=== PATIENT | male | born 1960 ===

== ENCOUNTER 2016-11-17 00:58 | Emergency (ER) | payer OTHER ==
[2016-11-17 00:59] VITALS: BMI 26.6
[2016-11-17 01:14] VITALS: BP 131/89; PULSE 86; TEMP 98
[2016-11-17] MEDS ORDERED: Albuterol-Ipratrop 3 mg / 0.5 (3 ml) UD INH STA (01:18)
[2016-11-17] MEDS ORDERED: Albuterol-Ipratrop 3 mg / 0.5 (3 ml) UD ONE (01:22)
--- NOTE | 2016-11-17 02:01 | ED PDOC ---
HPI: SOB/CHF/COPD Time Seen by Provider: 11/17/16 01:12 Chief Complaint (Nursing): Shortness Of Breath Chief Complaint (Provider): Shortness of Breath History Per: Patient History/Exam Limitations: no limitations Onset/Duration Of Symptoms: Days (2 days) Severity: Mild Associated Symptoms: denies: Fever, Chills, Chest Pain, Dizziness Additional Complaint(s): 56 y/o male patient presenting to the ED with a cough that has been going on for 2 days. Pt is a current smoker and says the cough has been occurring for two days. Pt denies any chest pain , shortness of breath, fever, chills, no phlegm or diarrhea. Past Medical History Reviewed: Historical Data, Nursing Documentation, Vital Signs Vital Signs: Last Vital Signs Temp 98.0 F 11/17/16 01:11 Pulse 86 11/17/16 01:11 Resp 18 11/17/16 02:11 BP 131/89 11/17/16 01:11 Pulse Ox 97 11/17/16 02:11 - Medical History PMH: Denies: Pneumonia - Surgical History Surgical History: Appendectomy, Hernia Repair - Family History Family History: States: Unknown Family Hx - Social History Current smoker - smoking cessation education provided: Yes - Home Medications Home Medications: Ambulatory Orders Medication Instructions Recorded Albuterol 0.083% [Albuterol 0.083% 2.5 mg IH Q4 PRN #20 neb 04/23/16 Inhal Shayy (2.5 mg/3 ml) UD] Albuterol HFA [Ventolin HFA 90 1 - 2 puff IH Q4 PRN #1 inhaler 04/23/16 mcg/actuation (8 g)] Azithromycin [Zithromax] 250 mg PO DAILY #6 tab 04/23/16 Prednisone 50 mg PO DAILY #4 tab 04/23/16 Benzonatate [Tessalon Perle] 100 mg PO TID #20 capsule 11/17/16 predniSONE [predniSONE Tab] 40 mg PO DAILY #9 tab 11/17/16 - Allergies Allergies/Adverse Reactions: Allergies Allergy/AdvReac Type Severity Reaction Status Date / Time No Known Allergies Allergy Verified 04/23/16 09:09 Review of Systems ROS Statement: Except As Marked, All Systems Reviewed And Found Negative Constitutional: Negative for: Fever, Chills Cardiovascular: Negative for: Chest Pain Respiratory: Positive for: Cough, Shortness of Breath. Negative for: Sputum Gastrointestinal: Negative for: Nausea, Vomiting, Abdominal Pain Neurological: Negative for: Dizziness Physical Exam - Reviewed Nursing Documentation Reviewed: Yes Vital Signs Reviewed: Yes - Physical Exam Appears: Positive for: Non-toxic, No Acute Distress Head Exam: Positive for: ATRAUMATIC, NORMAL INSPECTION, NORMOCEPHALIC Skin: Positive for: Normal Color, Warm Eye Exam: Positive for: Normal appearance, EOMI, PERRL ENT: Positive for: Normal ENT Inspection Neck: Positive for: Normal, Painless ROM, Supple Cardiovascular/Chest: Positive for: Regular Rate, Rhythm. Negative for: Murmur Respiratory: Positive for: Normal Breath Sounds. Negative for: Wheezing Extremity: Positive for: Normal ROM Neurologic/Psych: Positive for: Alert, Oriented. Negative for: Motor/Sensory Deficits - ECG O2 Sat by Pulse Oximetry: 96 (RA) Pulse Ox Interpretation: Normal Medical Decision Making Medical Decision Making: Time: 0115 Initial impression: VIRAL ILLNESS/COUGH Initial plan: --CHEST TWO VIEWS X-RAY --ALBUTEROL/IPRATROPIUM 3ML --IBUPROFEN 600MG --PREDNISONE 40MG 0228: PT feeling better after administering of Prednisone, Alubuterol. Provided with smoking cessation counseling and ordered to follow up with PCP. Scribe Attestation: Documented by Jeny Song, acting as a scribe for Balwinder Mejía M.D. MD Scribe Attestation: All medical record entries made by the Scribe were at my direction and personally dictated by me. I have reviewed the chart and agree that the record accurately reflects my personal performance of the history, physical exam, medical decision making, and the department course for this patient. I have also personally directed, reviewed, and agree with the discharge instructions and disposition. Disposition - Clinical Impression Clinical Impression: Bronchospasm - Patient ED Disposition Is Patient to be Admitted: No Counseled Patient/Family Regarding: Smoking Cessation - Disposition Referrals: Osmel Melchor Jr., MD [Primary Care Provider] - Disposition: Routine/Home Disposition Time: 02:28 Condition: STABLE Prescriptions: Benzonatate [Tessalon Perle] 100 mg PO TID #20 capsule predniSONE [predniSONE Tab] 40 mg PO DAILY #9 tab Instructions: How to Stop Smoking (ED), Bronchospasm (ED) - PA / REGISTERED NURSE STEP DOWN / Resident Statement MD/DO has reviewed & agrees with the documentation as recorded.
[2016-11-17 02:24] VITALS: RESP 18
[2016-11-17 02:33] VITALS: O2SAT 98
--- NOTE | 2016-11-17 13:22 | RAD ---
HISTORY: smoker, cough COMPARISON: 04/23/2016. TECHNIQUE: Chest PA and lateral FINDINGS: LUNGS: No active pulmonary disease. PLEURA: No significant pleural effusion identified. No pneumothorax apparent. CARDIOVASCULAR: No radiographic findings to suggest acute or significant cardiovascular disease. OSSEOUS STRUCTURES: No significant abnormalities. VISUALIZED UPPER ABDOMEN: Normal. OTHER FINDINGS: None. IMPRESSION: No active disease. No significant interval change compared to the prior examination(s).
--- NOTE | 2016-11-17 16:51 | CARD ---
APPROVED REPORT EKG Measurement Heart [id number] <Conclusion> Normal sinus rhythm Normal ECG
== END 2016-11-17 02:34 | disposition home or self-care (01) ==
LOC: H.ER 00:58
DX: J98.01 Acute bronchospasm (principal); F17.200 Nicotine dependence, unspecified, uncomplicated

== ENCOUNTER 2017-04-13 09:03 | Emergency (ER) | payer OTHER ==
[2017-04-13 09:07] VITALS: BP 126/88; PULSE 76; TEMP 98; O2SAT 98; BMI 27.4
--- NOTE | 2017-04-13 10:24 | ED PDOC ---
HPI: CCC, URI, Sore Throat Time Seen by Provider: 04/13/17 09:36 Chief Complaint (Nursing): Cough, Cold, Congestion Chief Complaint (Provider): Dry cough History Per: Patient History/Exam Limitations: no limitations Onset/Duration Of Symptoms: Other (x1.5 weeks) Current Symptoms Are (Timing): Still Present Additional Complaint(s): Umang Prado is a 57 year old male with no past medical history who presents to the ED complaining of a dry cough with no associated fever, shortness of breath , or chest pain, ongoing for 1.5 weeks. Patient states he has been taking Tylenol cold at home. Patient is a smoker. PMD: Osmel Melchor MD Past Medical History Reviewed: Historical Data, Nursing Documentation, Vital Signs Vital Signs: Last Vital Signs Temp 98 F 04/13/17 09:06 Pulse 76 04/13/17 09:06 Resp BP 126/88 04/13/17 09:06 Pulse Ox 98 04/13/17 11:43 - Medical History PMH: Denies: Pneumonia - Surgical History Surgical History: Appendectomy, Hernia Repair - Family History Family History: States: Unknown Family Hx - Social History Current smoker - smoking cessation education provided: Yes (<10 cigarettes per day) Alcohol: None Drugs: Denies - Home Medications Home Medications: Ambulatory Orders Medication Instructions Recorded Albuterol 0.083% [Albuterol 0.083% 2.5 mg IH Q4 PRN #20 neb 04/23/16 Inhal Shayy (2.5 mg/3 ml) UD] Albuterol HFA [Ventolin HFA 90 1 - 2 puff IH Q4 PRN #1 inhaler 04/23/16 mcg/actuation (8 g)] Azithromycin [Zithromax] 250 mg PO DAILY #6 tab 04/23/16 Prednisone 50 mg PO DAILY #4 tab 04/23/16 Benzonatate [Tessalon Perle] 100 mg PO TID #20 capsule 11/17/16 predniSONE [predniSONE Tab] 40 mg PO DAILY #9 tab 11/17/16 Albuterol 0.083% [Albuterol 0.083% 3 ml IH Q6H PRN #30 neb 04/13/17 Inhal Shayy (2.5 mg/3 ml) UD] Nebulizer [Compact Compressor 1 dev XX PRN PRN #1 dev 04/13/17 Nebulizer] - Allergies Allergies/Adverse Reactions: Allergies Allergy/AdvReac Type Severity Reaction Status Date / Time No Known Allergies Allergy Verified 04/13/17 09:17 Review of Systems ROS Statement: Except As Marked, All Systems Reviewed And Found Negative Constitutional: Negative for: Fever Cardiovascular: Negative for: Chest Pain Respiratory: Positive for: Cough. Negative for: Shortness of Breath Physical Exam - Reviewed Nursing Documentation Reviewed: Yes Vital Signs Reviewed: Yes - Physical Exam Appears: Positive for: Well, Non-toxic, No Acute Distress Head Exam: Positive for: ATRAUMATIC, NORMAL INSPECTION, NORMOCEPHALIC Skin: Positive for: Normal Color, Warm, Dry Eye Exam: Positive for: EOMI, Normal appearance, PERRL Neck: Positive for: Normal, Painless ROM, Supple Cardiovascular/Chest: Positive for: Regular Rate, Rhythm. Negative for: Murmur Respiratory: Positive for: Normal Breath Sounds. Negative for: Respiratory Distress Gastrointestinal/Abdominal: Positive for: Normal Exam, Bowel Sounds, Soft. Negative for: Tenderness Back: Positive for: Normal Inspection. Negative for: L CVA Tenderness, R CVA Tenderness, Vertebral Tenderness Extremity: Positive for: Normal ROM. Negative for: Tenderness, Pedal Edema, Deformity Neurologic/Psych: Positive for: Alert, Oriented, Other (Speaking full sentences) - ECG O2 Sat by Pulse Oximetry: 98 (RA) Pulse Ox Interpretation: Normal Medical Decision Making Medical Decision Making: Time: 09:55 Initial Impression: Cough Plan: --Chest X-ray 2 views --Reevaluation Time: 11:18 Chest X-Ray: FINDINGS: LINES AND TUBES: None. LUNG AND PLEURA: The lungs are well inflated and clear. HEART AND MEDIASTINUM: The heart is not enlarged. The hilar and mediastinal contours are within normal limits. SKELETAL STRUCTURES: The bony structures are within normal limits for the patient's age. VISUALIZED UPPER ABDOMEN: Normal. OTHER FINDINGS: None. IMPRESSION: No active pulmonary disease. Time: 12:10 Clinical Impression: Cough Upon provider reevaluation patient is medically stable, and requires no further treatment in the ED at this time. Patient will be discharged with Rx for Albuterol and nebulizer. Counseling was provided and all questions were answered regarding diagnosis and need for follow up. There is agreement to discharge plan. Return if symptoms persist or worsen. Scribe Attestation: Documented by Dimitri Lehman acting as a scribe for Alexus Chavarria MD. Scribe Attestation: All medical record entries made by the Scribe were at my direction and personally dictated by me. I have reviewed the chart and agree that the record accurately reflects my personal performance of the history, physical exam, medical decision making, and the department course for this patient. I have also personally directed, reviewed, and agree with the discharge instructions and disposition. Disposition - Clinical Impression Clinical Impression: Cough - Patient ED Disposition Is Patient to be Admitted: No Counseled Patient/Family Regarding: Studies Performed, Diagnosis, Need For Followup, Rx Given, Smoking Cessation - Disposition Disposition: Routine/Home Disposition Time: 12:10 Condition: STABLE Additional Instructions: FOLLOW-UP WITH PMD WITHIN 2 DAYS FOR REEVALUATION. Prescriptions: Albuterol 0.083% [Albuterol 0.083% Inhal Shayy (2.5 mg/3 ml) UD] 3 ml IH Q6H PRN # 30 neb PRN Reason: Shortness Of Breath Nebulizer [Compact Compressor Nebulizer] 1 dev XX PRN PRN #1 dev PRN Reason: Shortness Of Breath Instructions: How to Stop Smoking (ED), Acute Cough (ED) Forms: [employer] (Colombian) Print Language: PU[place]
--- NOTE | 2017-04-13 11:20 | RAD ---
HISTORY: COMPARISON: 11/17/2016. TECHNIQUE: Chest PA and lateral FINDINGS: LINES AND TUBES: None. LUNG AND PLEURA: The lungs are well inflated and clear. HEART AND MEDIASTINUM: The heart is not enlarged. The hilar and mediastinal contours are within normal limits. SKELETAL STRUCTURES: The bony structures are within normal limits for the patient's age. VISUALIZED UPPER ABDOMEN: Normal. OTHER FINDINGS: None. IMPRESSION: No active pulmonary disease.
== END 2017-04-13 12:30 | disposition home or self-care (01) ==
LOC: H.ER 09:03
DX: R05 Cough (principal)

== ENCOUNTER 2018-03-20 09:52 | Emergency (ER) | payer OTHER ==
[2018-03-20 10:04] VITALS: BMI 26.6
[2018-03-20 10:15] VITALS: O2SAT 98
--- NOTE | 2018-03-20 10:26 | ED PDOC ---
History of Present Illness History of Present Illness: 57 yo male, denies nay PMH, c/o productive cough with clear to green phlegm, denies fever HPI: Influenza Time Seen by Provider: 03/20/18 10:15 Chief Complaint: Cough, Cold, Congestion Past Medical History Reviewed: Nursing Documentation, Vital Signs Vital Signs: Last Vital Signs Temp 97 F L 03/20/18 10:02 Pulse 86 03/20/18 10:02 Resp 16 03/20/18 10:14 BP 124/86 03/20/18 10:02 Pulse Ox 98 03/20/18 10:13 - Medical History PMH: No Chronic Diseases Denies: Pneumonia - Surgical History Surgical History: Appendectomy, Hernia Repair - Family History Family History: States: Unknown Family Hx - Living Arrangements Living Arrangements: With Family - Social History Current smoker - smoking cessation education provided: Yes Alcohol: None Drugs: Denies - Home Medications Home Medications: Ambulatory Orders Medication Instructions Recorded Albuterol 0.083% [Albuterol 0.083% 2.5 mg IH Q4 PRN #20 neb 04/23/16 Inhal Shayy (2.5 mg/3 ml) UD] Albuterol HFA [Ventolin HFA 90 1 - 2 puff IH Q4 PRN #1 inhaler 04/23/16 mcg/actuation (8 g)] Azithromycin [Zithromax] 250 mg PO DAILY #6 tab 04/23/16 Prednisone 50 mg PO DAILY #4 tab 04/23/16 Benzonatate [Tessalon Perle] 100 mg PO TID #20 capsule 11/17/16 predniSONE [predniSONE Tab] 40 mg PO DAILY #9 tab 11/17/16 Albuterol 0.083% [Albuterol 0.083% 3 ml IH Q6H PRN #30 neb 04/13/17 Inhal Shayy (2.5 mg/3 ml) UD] Nebulizer [Compact Compressor 1 dev XX PRN PRN #1 dev 04/13/17 Nebulizer] Methylprednisolone [Medrol Dose 4 mg PO DAILY #21 mg 03/20/18 Pack (21 tabs)] Promethazine HCl/Codeine 5 ml PO HS #80 ml 03/20/18 [Prometh-Codein 6.25-10 mg/5 ml] - Allergies Allergies/Adverse Reactions: Allergies Allergy/AdvReac Type Severity Reaction Status Date / Time No Known Allergies Allergy Verified 04/13/17 09:17 Review of Systems ROS Statement: Except As Marked, All Systems Reviewed And Found Negative ENT: Positive for: Nose Congestion Respiratory: Positive for: Cough Physical Exam - Reviewed Nursing Documentation Reviewed: Yes Vital Signs Reviewed: Yes - Physical Exam Appears: Positive for: Well, Non-toxic, No Acute Distress Head Exam: Positive for: ATRAUMATIC, NORMAL INSPECTION, NORMOCEPHALIC Skin: Positive for: Normal Color, Warm, DRY Eye Exam: Positive for: EOMI, Normal appearance, PERRL ENT: Positive for: Normal ENT Inspection Neck: Positive for: Normal, Painless ROM Cardiovascular/Chest: Positive for: Regular Rate, Rhythm Respiratory: Positive for: CNT, Normal Breath Sounds Gastrointestinal/Abdominal: Positive for: Normal Exam, Soft Back: Positive for: Normal Inspection Extremity: Positive for: Normal ROM Neurologic/Psych: Positive for: Alert, Oriented Medical Decision Making Medical Decision Making: Afebrile CXR: NAd, as read by POWER Given supportive care measures. advised to follow up with PMD - ECG O2 Sat by Pulse Oximetry: 98 Disposition - Clinical Impression Clinical Impression: Chest congestion - Patient ED Disposition Is Patient to be Admitted: No - Disposition Disposition: Routine/Home Disposition Time: 15:15 Condition: STABLE Prescriptions: Methylprednisolone [Medrol Dose Pack (21 tabs)] 4 mg PO DAILY #21 mg Promethazine HCl/Codeine [Prometh-Codein 6.25-10 mg/5 ml] 5 ml PO HS #80 ml Instructions: Viral Upper Respiratory Infection, Adult (DC) Forms: [employer] (Grenadian)
--- NOTE | 2018-03-20 10:51 | RAD ---
Date of service: 03/20/2018 HISTORY: cough x 1 week COMPARISON: 04/13/2017 TECHNIQUE: Chest PA and lateral FINDINGS: LUNGS: Frontal lateral views of the chest reveal no evidence of new focal infiltrate. No hilar enlargement is seen. The trachea is midline. PLEURA: No significant pleural effusion identified. No pneumothorax apparent. CARDIOVASCULAR: Normal. OSSEOUS STRUCTURES: No significant abnormalities. VISUALIZED UPPER ABDOMEN: Normal. OTHER FINDINGS: None. IMPRESSION: No focal infiltrate or CHF. No interval change from prior study.
[2018-03-20 11:37] VITALS: BP 120/70; PULSE 74; RESP 20; TEMP 98
== END 2018-03-20 11:37 | disposition home or self-care (01) ==
LOC: H.ER 09:52
DX: R09.89 Other specified symptoms and signs involving the circulatory and respiratory systems (principal); F17.200 Nicotine dependence, unspecified, uncomplicated